=== PATIENT | male | born 2000 | race Caucasian/White ===

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

== ENCOUNTER 2021-01-13 12:08 | Inpatient (IN) ==
[2021-01-13] MEDS ORDERED: SODIUM CHLORIDE 0.9% 1000ML 2,000 ML IV ONE (13:06)
[2021-01-13 13:08] LABS: Basophils # (auto) 0.02 K/uL (0-0.2); Basophils % (auto) 0.3 %; Eosinophils # (auto) 0.39 K/uL (0-0.5); Hematocrit (blood only) 34.9 % (42-52); Hemoglobin 10.2 g/dL (14.0-18.0); Immature Granulocytes # (auto) 0.05 K/uL (0.00-0.02); Immature Granulocytes % (auto) 0.6 %; Lymphocytes # (auto) 1.92 K/uL (1.2-3.4); Lymphocytes % (auto) 24.5 %; Mean Corpuscular Hemoglobin 21.5 pg (25-34); Mean Corpuscular Hgb Conc 29.2 g/dL (32-36); Mean Corpuscular Volume 73.5 fL (80-100); Mean Platelet Volume 8.2 fL (7.4-10.4); Monocytes # (auto) 1.04 K/uL (0.11-0.59); Monocytes % (auto) 13.3 %; Neutrophils # (auto) 4.42 K/uL (1.4-6.5); Neutrophils % (auto) 56.3 %; Platelet Count 510 K/uL (130-400); RDW Coefficient of Variation 17.5 % (11.5-14.5); RDW Standard Deviation 47.2 fL (36.4-46.3); Red Blood Count 4.75 M/uL (4.7-6.1); White Blood Count 7.84 K/uL (4.8-10.8)
--- NOTE | 2021-01-13 13:23 | Emergency Department Note ---
Impression & Plan Inflammatory bowel disease, Abdominal pain ED Provider Note NAME: ROCKY DUFF AGE: 20 SEX: M : 2000 ARRIVES VIA: Walk-In INFORMANT: Patient ED PROVIDER(S): Seth Paniagua DO CHIEF COMPLAINT: Abdominal pain HPI: Patient is a 20-year-old male who presents to the ER for abdominal pain. He has a past medical history of ulcerative colitis and microcytic anemia. He follows with [facility]. He called them this morning and was referred in as he has had this persistent pain for the past several months. Its not getting any better. He notes his belly pain is about a 2 out of 10 in a wax and wane to severe pain with a loose bowel movement and then will gradually improve afterwards. He has had decreased blood in the stool. Recent C. difficile's te st within the past 48 hours was negative. ROS: See above HPI for pertinent positives & negatives. A total of 10 systems reviewed and were otherwise negative. PAST MEDICAL HISTORY:See Below PAST SURGICAL HISTORY:See Below FAMILY HISTORY:See Below SOCIAL HISTORY:See Below HOME MEDICATIONS:See Below ALLERGIES:See Below VITALS:See Below PHYSICAL EXAMINATION: GENERAL: Sitting up in bed, alert, well appearing, well nourished, no distress, non-toxic EYE EXAM: normal conjunctiva. OROPHARYNX: no exudate, no erythema, lips, buccal mucosa, and tongue normal and mucous membranes are moist NECK: supple, no nuchal rigidity, no adenopathy, non-tender LUNGS: Clear to auscultation. Normal chest wall mechanics HEART: no murmurs, S1 normal and S2 normal ABDOMEN: abdomen soft, non-tender, normo-active bowel sounds, no masses, no rebound or guarding. UPPER EXTREMITIES: upper extremities are grossly normal. LOWER EXTREMITIES: No pitting edema. NEURO EXAM: Normal sensorium, cranial nerves II-XII grossly intact, normal speech, no gross weakness of arms, no gross weakness of legs. MEDICAL DECISION MAKING: Patient is a 20-year-old male who presents the ER for Ulcerative colitis.IV was established blood work was obtained. Labs show no significant leukocytosis and mild anemia 10.2. BMP with mild hypokalemia. LFTs bilirubin and lipase is unremarkable. UA was negative. Covid was negative. CT abdomen pelvis did show proctocolitis likely consistent with inflammatory bowel disease. Discussed with gastroenterology who recommended admission and steroids. Triage Nursing notes reviewed. Limited review of prior medical records performed Vital Signs: reviewed and remarkable for tachy Differential diagnosis: Differential diagnoses includes but is not limited to gastritis, peptic ulcer disease, GERD, gallbladder disease, pancreatitis, small bowel obstruction, acute coronary syndrome, pericarditis, ischemic bowel, irritable bowel disease, irritable bowel syndrome, appendicitis, diverticulitis, malignancy, hernia, urinary tract infection, torsion, [/ectopic (if female)], perforation, trauma, infectious. ER treatment provided: See below Diagnostics interpreted by me: ECG: none Cardiac Monitoring: An order was placed for continuous cardiac monitoring. The monitor shows a rate of 88 with sinus rhythm. Laboratory studies: As stated above and show below. Imaging studies: CT abdomen pelvis as discussed above Consultation(s): Discussed with gastroenterology Marcellus who recommended admission to the hospitalist and steroids Discussed with Dr. Jason Dinero who was aware of the Pt. Procedures: none Critical Care: None Past Med/Surg History Medical History Abdominal pain Acute lower GI bleeding Encounter for health maintenance examination Otitis media Supraclavicular lymphadenopathy Ulcerative colitis Surgical History History of circumcision S/P colonoscopy [place] teeth extracted Family History Unknown Hypertension Cancer Father Hypercholesterolemia Denies family history of Ovarian cancer Prostate cancer Myocardial infarction Breast cancer Colorectal cancer Social History Smoking Status: Never smoker Hx Alcohol Use: No Hx Substance Use: No Preferred Language: Somali Communication Ability: Effective Electronic Calibration Technician Required: No Beliefs That Will Affect Care: None marital status: Single Current Living Situation: Family Current Living Situation Comment: parents and older brother current occupational status: student Feels Safe at Home: Yes Childhood Exposure to Second-Hand Smoke: No Dental Care, Regularly: Yes Physical Activity Frequency: 5-6 Times per Week Seatbelt Use: always Sunscreen Use: Yes Do you think of yourself as: straight/heterosexual Assistive Devices: None Allergies Allergies Allergy/AdvReac Type Severity Reaction Status Date / Time No Known Allergies Allergy Verified 01/12/21 19:08 Home Meds Home Medications Medication Instructions Recorded Confirmed colestipol 1 g PO BID 01/13/21 01/13/21 ferrous sulfate 1 mg PO DAILY 01/13/21 01/13/21 multivitamin 1 tab PO DAILY 01/13/21 01/13/21 peppermint oil [IBgard] 90 mg PO BID 01/13/21 01/13/21 prednisone 20 mg PO DAILY 01/13/21 01/13/21 vedolizumab [Entyvio] 300 mg IV MONTHLY 01/13/21 01/13/21 Previous Rx's Medication Instructions Recorded dicyclomine 20 mg PO BID #20 cap 11/12/20 Results & Data (ED) Vital Signs Vital Signs - 24 hr 01/13/21 12:13 01/13/21 15:44 01/13/21 16:36 Temperature 36.9 C Temperature Source Temporal Artery Scan Pulse Rate 109 H 78 Pulse Rate [Right Finger] 82 Pulse Rate from SpO2 Sensor Pulse Rhythm Regular Respiratory Rate 18 18 20 Respiratory Effort / Characteristics Non-Labored Spontaneous Non-Labored Respiratory Depth Normal Normal Respiratory Pattern Regular Regular Blood Pressure 106/60 Blood Pressure [Right Arm] 110/54 L Blood Pressure Mean 75 Blood Pressure Mean [Right Arm] 72 Pulse Oximetry 98 97 99 Oxygen Delivery Method Room Air Room Air Room Air Sepsis Recent Fever Within 48 Hours No Sepsis New/Unexplained Change in Mental Status No Sepsis Action Taken by Nursing No Action Required 01/13/21 16:47 01/13/21 17:00 Temperature Temperature Source Pulse Rate 135 H 89 Pulse Rate [Right Finger] Pulse Rate from SpO2 Sensor 79 87 Pulse Rhythm Respiratory Rate 15 18 Respiratory Effort / Characteristics Respiratory Depth Respiratory Pattern Blood Pressure 122/54 L Blood Pressure [Right Arm] Blood Pressure Mean 76 Blood Pressure Mean [Right Arm] Pulse Oximetry 98 98 Oxygen Delivery Method Sepsis Recent Fever Within 48 Hours Sepsis New/Unexplained Change in Mental Status Sepsis Action Taken by Nursing Laboratory Data Result diagrams: 01/13/21 12:50 01/13/21 12:50 Lab Results 01/13/21 01/13/21 01/13/21 Range/Units 12:50 12:50 15:51 WBC 7.84 (4.8-10.8) K/uL RBC 4.75 (4.7-6.1) M/uL Hgb 10.2 L (14.0-18.0) g/dL Hct 34.9 L (42-52) % MCV 73.5 L (80-100) fL MCH 21.5 L (25-34) pg MCHC 29.2 L (32-36) g/dL RDW Std Deviation 47.2 H (36.4-46.3) fL RDW Coeff of Emily 17.5 H (11.5-14.5) % Plt Count 510 H (130-400) K/uL MPV 8.2 (7.4-10.4) fL Immature Gran % (Auto) 0.6 % Neut % (Auto) 56.3 % Lymph % (Auto) 24.5 % Sanders % (Auto) 13.3 % Eos % (Auto) 5.0 % Baso % (Auto) 0.3 % Neut # (Auto) 4.42 (1.4-6.5) K/uL Lymph # (Auto) 1.92 (1.2-3.4) K/uL Sanders # (Auto) 1.04 H (0.11-0.59) K/uL Eos # (Auto) 0.39 (0-0.5) K/uL Baso # (Auto) 0.02 (0-0.2) K/uL Immature Gran # (Auto) 0.05 H (0.00-0.02) K/uL Polychromasia 1+ Anisocytosis Present Ovalocytes 1+ Sodium 137 (136-145) mmol/L Potassium 3.4 L (3.5-5.1) mmol/L Chloride 103 (98-107) mmol/L Carbon Dioxide 27 (21-32) mmol/L Anion Gap 7.0 (3-11) BUN 9 (7-18) mg/dl Creatinine 0.85 (0.6-1.4) mg/dl Est Cr Clr Drug Dosing 137.4 ml/min Est GFR ( Amer) 146.4 ml/min Est GFR (Non-Af Amer) 126.3 ml/min BUN/Creatinine Ratio 10.2 (10-20) Glucose 73 (70-99) mg/dl Calcium 8.8 (8.5-10.1) mg/dl Total Bilirubin 1.0 (0.2-1) mg/dl AST < 3 L (15-37) U/L ALT 16 (12-78) U/L Alkaline Phosphatase 54 (45-117) U/L Total Protein 6.8 (6.4-8.2) gm/dl Albumin 2.8 L (3.4-5.0) gm/dl Globulin 4.0 (2.5-4.0) gm/dl Albumin/Globulin Ratio 0.7 L (0.9-2) Lipase 87 (73-393) U/L Urine Color Yellow Urine Appearance Turbid A (Clear) Urine pH 7.0 (4.5-7.5) Ur Specific [place] 1.020 (1.000-1.030) Urine Protein Negative (Negative) Urine Glucose (UA) Negative (Negative) Urine Ketones Trace H (Negative) Urine Blood Negative (Negative) Urine Nitrite Negative (Negative) Urine Bilirubin Negative (Negative) Urine Urobilinogen Negative (Negative) Ur Leukocyte Esterase Negative (Negative) Urine WBC (Auto) 1-5 (0-5) /hpf Urine RBC (Auto) 0-4 (0-4) /hpf U Hyaline Cast (Auto) 5-10 H (0-5) /lpf U Epithel Cells (Auto) 5-10 H (0-5) /lpf Urine Bacteria (Auto) Negative (Negative) COVID-19 Eval Order SARS-CoV-2 (PCR) (Negative) 01/13/21 01/13/21 Range/Units 15:51 15:51 WBC (4.8-10.8) K/uL RBC (4.7-6.1) M/uL Hgb (14.0-18.0) g/dL Hct (42-52) % MCV (80-100) fL MCH (25-34) pg MCHC (32-36) g/dL RDW Std Deviation (36.4-46.3) fL RDW Coeff of Emily (11.5-14.5) % Plt Count (130-400) K/uL MPV (7.4-10.4) fL Immature Gran % (Auto) % Neut % (Auto) % Lymph % (Auto) % Sanders % (Auto) % Eos % (Auto) % Baso % (Auto) % Neut # (Auto) (1.4-6.5) K/uL Lymph # (Auto) (1.2-3.4) K/uL Sanders # (Auto) (0.11-0.59) K/uL Eos # (Auto) (0-0.5) K/uL Baso # (Auto) (0-0.2) K/uL Immature Gran # (Auto) (0.00-0.02) K/uL Polychromasia Anisocytosis Ovalocytes Sodium (136-145) mmol/L Potassium (3.5-5.1) mmol/L Chloride (98-107) mmol/L Carbon Dioxide (21-32) mmol/L Anion Gap (3-11) BUN (7-18) mg/dl Creatinine (0.6-1.4) mg/dl Est Cr Clr Drug Dosing ml/min Est GFR ( Amer) ml/min Est GFR (Non-Af Amer) ml/min BUN/Creatinine Ratio (10-20) Glucose (70-99) mg/dl Calcium (8.5-10.1) mg/dl Total Bilirubin (0.2-1) mg/dl AST (15-37) U/L ALT (12-78) U/L Alkaline Phosphatase (45-117) U/L Total Protein (6.4-8.2) gm/dl Albumin (3.4-5.0) gm/dl Globulin (2.5-4.0) gm/dl Albumin/Globulin Ratio (0.9-2) Lipase (73-393) U/L Urine Color Urine Appearance (Clear) Urine pH (4.5-7.5) Ur Specific [place] (1.000-1.030) Urine Protein (Negative) Urine Glucose (UA) (Negative) Urine Ketones (Negative) Urine Blood (Negative) Urine Nitrite (Negative) Urine Bilirubin (Negative) Urine Urobilinogen (Negative) Ur Leukocyte Esterase (Negative) Urine WBC (Auto) (0-5) /hpf Urine RBC (Auto) (0-4) /hpf U Hyaline Cast (Auto) (0-5) /lpf U Epithel Cells (Auto) (0-5) /lpf Urine Bacteria (Auto) (Negative) COVID-19 Eval Order Covid19 at [facility] SARS-CoV-2 (PCR) NEGATIVE (Negative) Administered Medications Discontinued Medications Sodium Chloride (Nss 1000ml) 2,000 mls @ 999 mls/hr IV .Q2H1M ONE Stop: 01/13/21 15:06 Last Infusion: 01/13/21 15:36 Dose: 0 mls/hr Documented by: [id number] Admin: 01/13/21 13:13 Dose: 999 mls/hr Documented by: [id number] Ioversol (Optiray 320 100ml) 90 ml IV ONCE ONE Stop: 01/13/21 14:59 Last Admin: 01/13/21 14:58 Dose: 90 ml Documented by: [id number] Methylprednisolone (Methylprednisolone 40 Mg/Ml Vial) 20 mg IV NOW STA Stop: 01/13/21 15:17 Last Admin: 01/13/21 15:41 Dose: 20 mg Documented by: [id number] Imaging Data Radiologist's Impression: Abdomen/Pelvis CT 01/13/21 13:06 CT OF THE ABDOMEN AND PELVIS WITH CONTRAST CLINICAL HISTORY: Abdominal pain. Ulcerative colitis. COMPARISON STUDY: CT of the abdomen and pelvis October 31, 2020. TECHNIQUE: Following IV administration of 90 mL of Optiray, axial images of the abdomen and pelvis were obtained from the lung bases to the proximal femurs. Images were reviewed in the axial, sagittal, and coronal planes. IV contrast was administered without complication. Automated exposure control was utilized for the study. A dose lowering technique was utilized adhering to the principles of ALARA. CT DOSE: 364.78 mGycm FINDINGS: Lung bases are unremarkable. No pneumatosis, free air or portal venous gas is present. Subcentimeter right hepatic lobe lesion is too small to c haracterize but likely reflect a tiny cyst. The spleen, adrenal glands and kidneys as well as the pancreas are normal. There is no biliary or pancreatic ductal dilatation. No peripancreatic or pericholecystic infiltration is present. There is no hydronephrosis. The appendix is normal. There is no evidence for a bowel obstruction. Moderate wall thickening of the rectum, sigmoid colon and descending colon present. There is mild wall thickening of the transverse colon and the ascending colon. There is evidence for hyperemia. The findings have progressed since CT of October 31, 2020. No abscess is present. Major vasculature is patent. No acute fracture or suspicious lesion is identified within visu alized skeletal structures. IMPRESSION: Findings consistent with proctocolitis with long segment involvement. Increase in degree and extent of colonic wall thickening since CT of October 31, 2020. The findings suggest active inflammatory bowel disease given the clinical history. No free air or abscess. ACT 112: Negative or not required by law. Electronically signed by: Dov Cowart M.D. 01/13/2021 3:22 PM Discharge Plan Visit Data Chief Complaint: GI Assessment Stated Complaint: FLARE UP ULCERATIVE COLITIS/DR REFERRED TO BE ADMI ED Provider: Seth Paniagua Discharge Problem: Inflammatory bowel disease, Abdominal pain Forms Stand Alone Forms: [facility] [employer] Prescriptions Prescriptions: No Action dicyclomine 10 mg Capsule 20 mg PO BID Qty: 20 RF: 0 multivitamin Tablet 1 tab PO DAILY RF: 0 prednisone 10 mg Tablets,Dose Pack 20 mg PO DAILY RF: 0 colestipol 1 gram Tablet 1 g PO BID RF: 0 ferrous sulfate 325 mg (65 mg iron) Capsule, Extended Release 1 mg PO DAILY RF: 0 Entyvio 300 mg Recon Soln 300 mg IV MONTHLY RF: 0 IBgard 90 mg Capsule,Delayed,Extend.Release 90 mg PO BID RF: 0 Discharge Problem: Abdominal pain Qualifiers: Abdominal location: unspecified location Qualified Code(s): R10.9 - Unspecified abdominal pain
[2021-01-13 13:32] LABS: Alanine Aminotransferase 16 U/L (12-78); Albumin Level 2.8 gm/dl (3.4-5.0); Aspartate Aminotransferase < 3 U/L (15-37); BUN Creatinine Ratio 10.2 (10-20); Blood Urea Nitrogen 9 mg/dl (7-18); Calcium 8.8 mg/dl (8.5-10.1); Carbon Dioxide 27 mmol/L (21-32); Chloride 103 mmol/L (98-107); Creatinine Clr Calc Pharmacy 137.4 ml/min; Est GFR (African American) 146.4 ml/min; Est GFR (Non-African American) 126.3 ml/min; Glucose 73 mg/dl (70-99); Lipase 87 U/L (73-393); Potassium 3.4 mmol/L (3.5-5.1); Sodium 137 mmol/L (136-145)
[2021-01-13 13:34] LABS: Albumin Globulin Ratio 0.7 (0.9-2); Alkaline Phosphatase 54 U/L (45-117); Total Protein 6.8 gm/dl (6.4-8.2)
[2021-01-13 13:51] LABS: Anisocytosis Present; Ovalocytes 1+; Polychromasia 1+
[2021-01-13] MEDS ORDERED: OPTIRAY 320 100ml IV ONE (14:58)
--- NOTE | 2021-01-13 15:23 | CT Scan Report ---
CT OF THE ABDOMEN AND PELVIS WITH CONTRAST CLINICAL HISTORY: Abdominal pain. Ulcerative colitis. COMPARISON STUDY: CT of the abdomen and pelvis October 31, 2020. TECHNIQUE: Following IV administration of 90 mL of Optiray, axial images of the abdomen and pelvis we re obtained from the lung bases to the proximal femurs. Images were reviewed in the axial, sagittal, and coronal planes. IV contrast was administered without complication. Automated exposure control wa s utilized for the study. A dose lowering technique was utilized adhering to the principles of ALARA . CT DOSE: 364.78 mGycm FINDINGS: Lung bases are unremarkable. No pneumatosis, free air or portal venous gas is present. Subc entimeter right hepatic lobe lesion is too small to characterize but likely reflect a tiny cyst. The spleen, adrenal glands and kidneys as well as the pancreas are normal. There is no biliary or pancrea tic ductal dilatation. No peripancreatic or pericholecystic infiltration is present. There is no hydr onephrosis. The appendix is normal. There is no evidence for a bowel obstruction. Moderate wall thick ening of the rectum, sigmoid colon and descending colon present. There is mild wall thickening of the transverse colon and the ascending colon. There is evidence for hyperemia. The findings have progres sed since CT of October 31, 2020. No abscess is present. Major vasculature is patent. No acute fracture or suspicious lesion is identified within visualized skeletal structures. IMPRESSION: Findings consistent with proctocolitis with long segment involvement. Increase in degree and extent of colonic wall thickening since CT of October 31, 2020. The findings suggest active inflamm atory bowel disease given the clinical history. No free air or abscess. ACT 112: Negative or not required by law. Electronically signed by: Dov Cowart M.D. 01/13/2021 3:22 PM
[2021-01-13 16:44] LABS: Appearance Urine Turbid (Clear); Bacteria Urine Automated Negative (Negative); Bilirubin Urine Negative (Negative); Blood Urine Negative (Negative); Color Urine Yellow; Glucose Urine UA Negative (Negative); Ketones Urine Trace (Negative); Leukocyte Esterase Urine Negative (Negative); Nitrite Urine Negative (Negative); Protein Urine Negative (Negative); RBC Urine Automated 0-4 /hpf (0-4); Urobilinogen Urine Negative (Negative)
--- NOTE | 2021-01-13 17:34 | History & Physical Report ---
Date of Service January 13, 2021 Assessment & Plan (1) Ulcerative colitis: Patient with presumed UC flair- with diagnosis in 2019 on colonoscopy - he has noticed no change in his symptoms with with Entyvio, dicyclomine, colestipol - Will be started on Methylprednisolone 40 BID IV - GI consult placed - NPO after midnight (2) Abdominal pain: As above, pain with defecation for the most part (3) Microcytic anemia: Is on iron sulfate- was placed on this after his October admisson - His MCV is up to 73.5 from 69 in the past (4) Weight loss: Symptom control History of Present Illness Primary Care Provider: Sushil Davis III, KANDICE Paul Clifton is a 20 year old male with ulcerative colitis who presents to the ER on advice of his surveying teacher. Patient has persistent symptoms of ongoing bloody diarrhea for the past 2-3 weeks despite outpatient prednisone treatment. Multiple non-response to treatment for ulcerative colitis for last 1.5 years. Was recently admitted in September for continued symptoms and was treated with IV methylprednisolone 60mg QID. He has been on a Prednisone taper, he reports 25 pound weight loss as well as unable to continue at College classes because of severe diarrhea. His episodes have also been waking him up in the middle of the night as well. He endorses increase in blood with diarrhea and more frequency. He has chills with his diarrhea, and abdominal discomfort is majority in the bilateral lower quadrants. He will be admitted to receive IV steroids, NPO after midnight, GI consult placed. Allergies Allergy/AdvReac Type Severity Reaction Status Date / Time No Known Allergies Allergy Verified 01/12/21 19:08 Home Medications Medication Instructions Recorded Confirmed Type dicyclomine 20 mg PO BID #20 cap 11/12/20 01/13/21 Rx Entyvio 300 mg IV MONTHLY 01/13/21 01/13/21 History colestipol 1 g PO BID 01/13/21 01/13/21 History ferrous sulfate 1 mg PO DAILY 01/13/21 01/13/21 History multivitamin 1 tab PO DAILY 01/13/21 01/13/21 History mesalamine 4 g MN BID 14 Days #1680 ml 01/16/21 Rx prednisone See Rx Instructions .ROUTE 01/16/21 Rx .COMPLEX #35 tab Past Med/Surg History Medical History Abdominal pain Acute lower GI bleeding Encounter for health maintenance examination Otitis media Supraclavicular lymphadenopathy Ulcerative colitis Surgical History History of circumcision S/P colonoscopy Fall 2018. 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 Cheesemaking Required: No Beliefs That Will Affect Care: None marital status: Single Current Living Situation: Family Current Living Situation Comment: parents and older brother current occupational status: student Feels Safe at Home: Yes Childhood Exposure to Second-Hand Smoke: No Dental Care, Regularly: Yes Physical Activity Frequency: 5-6 Times per Week Seatbelt Use: always Sunscreen Use: Yes Do you think of yourself as: straight/heterosexual Assistive Devices: None Review of Systems Review of Systems: REVIEW OF SYSTEMS: Constitutional: (+) weight loss and fatiuge, No fever, sweats Eyes: No diplopia, no worsening or blurred vision ENT: normal hearing, no trouble swallowing Respiratory: No cough, sputum, dyspnea at rest or on exertion Cardiovascular: No chest pain, tightness or palpitations Abdomen: (+) pain, diarrhea, bloody diarrhea, chills, Musculoskeletal: No joint pain, calf pain, swelling Neurologic: No weakness, numbness/tingling, or balance problems Psychiatric: No anxiety or depression Skin: No rash or itch Physical Exam Physical Exam: PHYSICAL EXAM: General: awake, alert, no apparent distress Head: Normocephalic, atraumatic ENT: PERRL, EOMI, no pharyngeal exudate, mucous membranes moist, no oral ulcerations Neuro: AAO x 3, speech clear and appropriate, strength intact bilaterally 5/5, sensation intact and equal all extremities and dermatomes, no pronator drift Chest: equal rise and fall of the chest, no accessory muscle use, no heaves or thrills, Clear to auscultation, on room air, Cardiac: Regular rate and rhythm, telemetry reviewed, skin warm dry, cap refill <3 seconds, peripheral pulses +2 no JVD, no murmur, no edema GI: NABS x 4 quadrants, soft, nontender to palpation, no rebound, guarding or tenderness : Spontaneously voiding, no pain, no CVA tenderness, Extremities: Normal inspection, no peripheral edema or erythema, calfs nontender to palpation Psych: Normal mood and affect Skin: no rash or erythema Results & Data Results & Data ([facility]) Vital Signs (Past 12 Hours) Vital Signs Temp Pulse Pulse Resp BP BP Pulse Ox 01/13/21 17:00 89 18 122/54 L 98 01/13/21 16:47 135 H 15 98 01/13/21 16:36 78 20 99 01/13/21 15:44 82 18 110/54 L 97 01/13/21 12:13 36.9 C 109 H 18 106/60 98 Laboratory Results Abnormal lab results 01/13/21 01/13/21 01/13/21 Range/Units 12:50 12:50 15:51 Hgb 10.2 L (14.0-18.0) g/dL Hct 34.9 L (42-52) % MCV 73.5 L (80-100) fL MCH 21.5 L (25-34) pg MCHC 29.2 L (32-36) g/dL RDW Std Deviation 47.2 H (36.4-46.3) fL RDW Coeff of Emily 17.5 H (11.5-14.5) % Plt Count 510 H (130-400) K/uL [place] # (Auto) 1.04 H (0.11-0.59) K/uL Immature Gran # (Auto) 0.05 H (0.00-0.02) K/uL Potassium 3.4 L (3.5-5.1) mmol/L AST < 3 L (15-37) U/L Albumin 2.8 L (3.4-5.0) gm/dl Albumin/Globulin Ratio 0.7 L (0.9-2) Urine Appearance Turbid A (Clear) Urine Ketones Trace H (Negative) U Hyaline Cast (Auto) 5-10 H (0-5) /lpf U Epithel Cells (Auto) 5-10 H (0-5) /lpf Diagnostic Findings Abdomen/Pelvis CT 01/13/21 13:06 CT OF THE ABDOMEN AND PELVIS WITH CONTRAST CLINICAL HISTORY: Abdominal pain. Ulcerative colitis. COMPARISON STUDY: CT of the abdomen and pelvis October 31, 2020. TECHNIQUE: Following IV administration of 90 mL of Optiray, axial images of the abdomen and pelvis were obtained from the lung bases to the proximal femurs. Images were reviewed in the axial, sagittal, and coronal planes. IV contrast was administered without complication. Automated exposure control was utilized for the study. A dose lowering technique was utilized adhering to the principles of ALARA. CT DOSE: 364.78 mGycm FINDINGS: Lung bases are unremarkable. No pneumatosis, free air or portal venous gas is present. Subcentimeter right hepatic lobe lesion is too small to characterize but likely reflect a tiny cyst. The spleen, adrenal glands and kidneys as well as the pancreas are normal. There is no biliary or pancreatic ductal dilatation. No peripancreatic or pericholecystic infiltration is present. There is no hydronephrosis. The appendix is normal. There is no evidence for a bowel obstruction. Moderate wall thickening of the rectum, sigmoid colon and descending colon present. There is mild wall thickening of the transverse colon and the ascending colon. There is evidence for hyperemia. The findings have progressed since CT of October 31, 2020. No abscess is present. Major vasculature is patent. No acute fracture or suspicious lesion is identified within visualized skeletal structures. IMPRESSION: Findings consistent with proctocolitis with long segment involvement. Increase in degree and extent of colonic wall thickening since CT of October 31, 2020. The findings suggest active inflammatory bowel disease given the clinical history. No free air or abscess. ACT 112: Negative or not required by law. Electronically signed by: Dov Cowart M.D. 01/13/2021 3:22 PM Medications Administered Discontinued Medications Sodium Chloride (Nss 1000ml) 2,000 mls @ 999 mls/hr IV .Q2H1M ONE Stop: 01/13/21 15:06 Last Infusion: 01/13/21 15:36 Dose: 0 mls/hr Documented by: [id number] Admin: 01/13/21 13:13 Dose: 999 mls/hr Documented by: [id number] Ioversol (Optiray 320 100ml) 90 ml IV ONCE ONE Stop: 01/13/21 14:59 Last Admin: 01/13/21 14:58 Dose: 90 ml Documented by: [id number] Methylprednisolone (Methylprednisolone 40 Mg/Ml Vial) 20 mg IV NOW STA Stop: 01/13/21 15:17 Last Admin: 01/13/21 15:41 Dose: 20 mg Documented by: [id number] Code Status & VTE Plan Code Status CODE: FULL VTE: SCD's, ambulation VTE Prophylaxis Plan VTE Prophylaxis will be ordered: Yes Supervising Physician Co-Signing Physician Notes Attending Attestation - Pt seen and examined, chart reviewed, care plan d/w KANDICE Hernandez. I agree w/ the parker components of his documentation. 20yo male with treatment-refractory Ulcerative colitis. Despite prednisone & biologics (Entyvio) he has continued with bloody stools and significant weight loss. PMH, PSH, allergies, meds, sochx, famhx - reviewed VSS, afebrile gen - thin, NAD skin - pallor heart - RRR, s1, s2 lungs - CTA b/l abd - soft NT ND BS+; no HSM ext - no edema labs - reviewed microcytic anemia recent c diff testing neg CT abd/pelvis - reviewed A/P: Treatment-refractory UC. Severe protein calorie malnutrition. Microcyctic anemia Formal GI consult requested for additional recs. IN meantime - solumedrol IV. Check ferritin, consider IV iron. Consider nutrition consult. Trend labs. Dominic Dinero MD PG Care Time/CCT Total # of Minutes Spent Total Time Spent with Patient: Total time spent is greater than 50% in coordination of care (as documented) at patient's floor/unit and/or counseling patient: Coding Level of Care Code 11682 Initial Inpt Care Lvl 2 Diagnoses Ulcerative colitis K51.819 Digestive disease complication type: unspecified complication Ulcerative colitis location: other ulcerative colitis Abdominal pain R10.9 Abdominal location: unspecified location Microcytic anemia D50.9 Weight loss R63.4 (1) Abdominal pain Abdominal location: unspecified location Qualified Code(s): R10.9 - Unspecified abdominal pain (2) Ulcerative colitis Digestive disease complication type: unspecified complication Ulcerative colitis location: other ulcerative colitis Qualified Code(s): K51.819 - Other ulcerative colitis with unspecified complications
[2021-01-13] MEDS ORDERED: methylPREDNISolone 125 MG/2 ML VIAL IV STA (19:29)
[2021-01-13] MEDS ORDERED: methylPREDNISolone 20 MG in SYRINGE 0 ML IV SCH (20:00)
[2021-01-13] MEDS: DICYCLOMINE HCL 10 MG CAP PO SCH (20:35)
[2021-01-13] MEDS ORDERED: NON-FORMULARY MEDICATION (Peppermint Oil [Ibgard] 90 mg Capsule,Delayed,Extend.Release) PO SCH (21:00)
[2021-01-13] MEDS: COLESTIPOL HCL 1 GM TAB PO SCH (22:09)
[2021-01-14 00:38] LABS: Cdiff Antigen Negative; Cdiff Toxin A+B Negative Cdiff Toxin (Negative)
[2021-01-14 07:41] LABS: Basophils # (auto) 0.01 K/uL (0-0.2); Basophils % (auto) 0.1 %; Eosinophils # (auto) 0.02 K/uL (0-0.5); Eosinophils % (auto) 0.2 %; Hematocrit (blood only) 31.8 % (42-52); Hemoglobin 9.3 g/dL (14.0-18.0); Immature Granulocytes # (auto) 0.05 K/uL (0.00-0.02); Immature Granulocytes % (auto) 0.5 %; Lymphocytes # (auto) 1.72 K/uL (1.2-3.4); Lymphocytes % (auto) 15.9 %; Mean Corpuscular Hemoglobin 21.4 pg (25-34); Mean Corpuscular Hgb Conc 29.2 g/dL (32-36); Mean Corpuscular Volume 73.3 fL (80-100); Mean Platelet Volume 8.1 fL (7.4-10.4); Monocytes # (auto) 1.48 K/uL (0.11-0.59); Monocytes % (auto) 13.7 %; Neutrophils # (auto) 7.55 K/uL (1.4-6.5); Neutrophils % (auto) 69.6 %; Platelet Count 521 K/uL (130-400); RDW Coefficient of Variation 17.4 % (11.5-14.5); RDW Standard Deviation 47.1 fL (36.4-46.3); Red Blood Count 4.34 M/uL (4.7-6.1); White Blood Count 10.83 K/uL (4.8-10.8)
[2021-01-14] MEDS: MULTIVITAMIN TAB PO SCH (08:04)
[2021-01-14] MEDS: methylPREDNISolone 40 MG in SYRINGE 0 ML IV SCH ×2 (08:04→20:35)
[2021-01-14] MEDS: DICYCLOMINE HCL 10 MG CAP PO SCH ×2 (08:04→21:16)
[2021-01-14 08:09] LABS: Anisocytosis Present; Blood Urea Nitrogen 5 mg/dl (7-18); Calcium 9.1 mg/dl (8.5-10.1); Carbon Dioxide 29 mmol/L (21-32); Chloride 107 mmol/L (98-107); Creatinine Clr Calc Pharmacy 182.2 ml/min; Est GFR (African American) > 150.0 ml/min; Est GFR (Non-African American) 141.9 ml/min; Ferritin 7.8 ng/ml (8-388); Glucose 109 mg/dl (70-99); Magnesium 2.1 mg/dl (1.8-2.4); Ovalocytes 1+; Polychromasia 1+; Potassium 4.2 mmol/L (3.5-5.1); Sodium 139 mmol/L (136-145)
--- NOTE | 2021-01-14 08:46 | Gastrointestinal Consultation ---
Date of Consultation January 14, 2021 Assessment & Plan (1) Ulcerative colitis: Agree with IV Solu-Medrol - currently receiving 40 mg every 12 hours. Clear liquid diet. Add mesalamine enemas twice daily x2 weeks then daily at bedtime for about 2 weeks, then twice weekly for a month. Would likely benefit from IV iron infusions. Has been on po iron since October, w/o significant improvement in Hb. He is iron deficient: ferritin 7.8. After further improvement, at the time of discharge, would discharge on prednisone 40 mg daily. For OP management of UC, mesalamine enemas as above, Continue Entyvio. For diarrhea, would add Imodium on an as-needed basis, as long as no active C. difficile or other infection. Would continue colestipol and dicyclomine. He needs to be in close contact with Sakshi Vo NP and/or Dr. Delacruz for appropriate taper of the prednisone. He may need to have a very slow prednisone taper. Present on Admission?: Yes Supervising Physician Co-Signing Physician Notes I saw and evaluated the patient. He was admitted yesterday evening due to refractory symptoms from underlying inflammatory bowel disease. The patient has been on Entyvio as an outpatient for the past 6 weeks but continues to have problems with loose to liquid stools. He believes that his last hematochezia was several weeks ago. He does continue to have problems with urgency or cramping and frequency. Physical examination No obvious distress, mild pallor of skin noted No scleral icterus noted Impression patient admitted with a history of refractory ulcerative colitis now seems to be improving with use of Solu-Medrol. We would continue use of intravenous steroids for at least another 24 to 48 hours. In addition we will have the patient begin use of Canasa suppository. I did discuss the Rowasa enema with him however he believes that he has had better response to the suppository in past history. Recommendations Advance diet as tolerated Continue Solu-Medrol for another 48 hours Begin Canasa suppository twice daily for 2 weeks then 1 time daily for 2 weeks then 3 times weekly thereafter Upon discharge would recommend a prednisone taper 20 mg daily for 4 weeks 15 mg daily for 1 week 10 mg daily for 1 week 5 mg daily for 1 week History of Present Illness Reason for Consultation: UC flare Requesting Physician: Suita Attending Physician: Tr Gutierrez MD History of Present Illness Mr. Paul Clifton is a 20-year-old male pt of Sushil Davis NP with a hx of hatch UC dx'ed at age 19, previously on balsalazide, Lialda,Humira and recently received the initial 2 infusions of Entyvio, with his next being due in mid January. He carries a hx of C-diff and has had ongoing UC symptoms since diagnosis. Recently was on prednisone 20mg daily as an OP. 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 Recent stool for C-diff and GI path were (-) in the OP setting. Here, C-diff gene is (+) but toxins (-). He does not some improvement in symptoms since Entyvio was started, less blood in BMs, slightly less frequent BMs. Currently, still with nighttime wakening for defecation and typically 6-10 loose urgent bowel movements per day during every 24 hour. About 75% of the stools have a small amount of bright red blood. No nausea or vomiting. He denies any problematic symptoms from prednisone use. He has been managed by Sakshi Vo and is also following with Dr. Delacruz in [place]. CT on arrival with moderate wall thickening of the rectum, sigmoid colon and descending colon present, with increased severity compared to CT in October which suggested mild left-sided colitis.WBC is mildly elevated at 10.8 and he is mildly anemic with Hb 9.3, Hct 31.8. Electrolytes are normal and he is hemodynamically stable. Most recent Colonoscopy Jun 2020: Pancolitis consistent with UC from the rectum to the cecum. TI normal. A. Right colon: Colonic mucosa with no significant architecture distortion or active inflammation B. Transverse colon: Colonic mucosa with occasional 1 or 2 cryptitis or crypt abscess. C. Left colon: Chronic colitis, severely active, associated ulcer. CMV is negative. Allergies Allergy/AdvReac Type Severity Reaction Status Date / Time No Known Allergies Allergy Verified 01/12/21 19:08 Home Medications Medication Instructions Recorded Confirmed Type dicyclomine 20 mg PO BID #20 cap 11/12/20 01/13/21 Rx colestipol 1 g PO BID 01/13/21 01/13/21 History ferrous sulfate 1 mg PO DAILY 01/13/21 01/13/21 History multivitamin 1 tab PO DAILY 01/13/21 01/13/21 History peppermint oil [IBgard] 90 mg PO BID 01/13/21 01/13/21 History prednisone 20 mg PO DAILY 01/13/21 01/13/21 History vedolizumab [Entyvio] 300 mg IV MONTHLY 01/13/21 01/13/21 History Patient History Medical History Abdominal pain Acute lower GI bleeding Encounter for health maintenance examination Otitis media Supraclavicular lymphadenopathy Ulcerative colitis Surgical History History of circumcision S/P colonoscopy Fall 2018. [place] teeth extracted Family History Unknown Hypertension Cancer Father Hypercholesterolemia Denies family history of Ovarian cancer Prostate cancer Myocardial infarction Breast cancer Colorectal cancer Social History Smoking Status: Never smoker Hx Alcohol Use: No Hx Substance Use: No Preferred Language: Niuean Communication Ability: Effective Personnel Administrator Required: No Beliefs That Will Affect Care: None marital status: Single Current Living Situation: Family Current Living Situation Comment: parents and older brother current occupational status: student Feels Safe at Home: Yes Safety Concerns: Feels Safe At This Time Childhood Exposure to Second-Hand Smoke: No Dental Care, Regularly: Yes Physical Activity Frequency: 5-6 Times per Week Seatbelt Use: always Sunscreen Use: Yes Do you think of yourself as: straight/heterosexual Assistive Devices: None Review of Systems Review of Systems: ROS: Gen: Poor exercise tolerance but otherwised no weakness; no fevers; has had a 30lbs weight loss Eyes: No eye redness, or pain, no recent vision changes Resp: No SOB, no cough Cardio: No palpitations/irregular beats, no chest pain GI: 7 of 10 abdominal cramping pain prior to defecation; no abdominal pain between stooling; no nausea/vomiting : Denies pain on urination Skin: No jaundice, itching or new rashes Physical Exam Constitutional: WD/WN, vitals as above Eyes: PERRL, conjunctivae normal, anicteric sclerae ENMT: external ear and nose normal, oropharynx normal Neck: trachea midline, no thyromegaly Respiratory: normal respiratory effort, lungs clear to auscultation Cardiovascular: RRR, no murmur, no edema Gastrointestinal (Abdomen): Inspection/Auscultation: abdomen normal to inspection and normal bowel sounds; abdomen not distended Percussion/Palpation: + abdomen tender (minimal diffuse tenderness) and abdomen soft Musculoskeletal: no cyanosis or clubbing, extremities motor strength 5/5 Skin: no rashes, warm and dry Neurologic: PERRL, EOMI, accommodation nl, no face palsy, no dysarthria Psychiatric: A+Ox3, euthymic affect Lymphatic: no cervical or axillary lymphadenopathy Results & Data ([facility]) Vital Signs (Past 12 Hours) Vital Signs Temp Pulse Resp BP Pulse Ox 01/14/21 08:05 36.8 C 69 12 100/58 L 98 01/13/21 23:04 36.9 C 67 18 101/63 99 Laboratory Results WBC 10.8, Hb 9.3, Hct 31, Plts 521, Na 139, K 4.2, BUN 5, Cr .64, glucose 101. Ferritin 7.8Albumin 2.8. LFTs and lipase normal. Diagnostic Findings CT abd/pelvis with IV contrast on 01/13/21: IMPRESSION: Findings consistent with proctocolitis with long segment involvement. Increase in degree and extent of colonic wall thickening since CT of October 31, 2020. The findings suggest active inflammatory bowel disease given the clinical history. No free air or abscess.
[2021-01-14] MEDS ORDERED: FERROUS SULFATE 325 MG TAB PO SCH (09:00)
--- NOTE | 2021-01-14 09:08 | Hospitalist Progress Note ---
Date of Service January 14, 2021 Assessment & Plan (1) Ulcerative colitis: Patient with presumed UC flair- with diagnosis in 2019 on colonoscopy - he has noticed no change in his symptoms with with Entyvio, dicyclomine, colestipol - Will be started on Methylprednisolone 40 BID IV - GI consult placed no plans and intervention continuing steroid treatment however is recommending mesalamine enemas twice daily for 2 weeks then once daily for 2 weeks then twice weekly for a month also recommending iron infusion Patient is having rectal bleeding CT abd/pelvis 01/13/21 IMPRESSION: Findings consistent with proctocolitis with long segment involvement. Increase in degree and extent of colonic wall thickening since CT of October 31, 2020. The findings suggest active inflammatory bowel disease given the clinical history. No free air or abscess. (2) Abdominal pain: As above, pain with defecation for the most part (3) Microcytic anemia: Is on iron sulfate- was placed on this after his October admisson - His MCV is up to 73.5 from 69 in the past (4) Weight loss: Symptom control Patient is underweight Admission and Anticipated Discharge Date Admission Date: January 13, 2021 Subjective Patient is having some rectal pain he does still some mild rectal bleeding he is got some crampy abdominal discomfort Review of Systems Review of Systems: Mild distress and fatigue no headache, no visual changes no speech or swallowing issues no chest pain, pressure or palpitations no shortness of breath, cough or wheezes Lower abdominal pain bloody bowel movements crampy no dysuria, hematuria or frequency no focal joint pain or swelling no back pain, CVA tenderness or radicular pain no bruising, bleeding or rashes no focal signs of weakness or numbness or altered sensation no complaints of anxiety or depression.. Physical Exam Physical Exam: The patient appeared underweight and thin Vital signs as documented. Head exam is normocephalic atraumatic Neck is without JVD, thyromegaly, or carotid bruits. Lungs are clear to auscultation, no focal loss of breath sounds Cardiac exam, Rhythm is regular.. No murmurs, rubs or gallops. Abdominal exam reveals normal bowel sounds, soft non tender, no masses Extremities are nonedematous and both pedal pulses are present Neurologic exam is alert and oriented, no focal loss of strength or sensation Skin is without bruises or rashes Psychologically is without concerns for anxiety or depression Results & Data Results & Data ([facility]) Vital Signs (Past 12 Hours) Vital Signs Temp Pulse Resp BP Pulse Ox 01/14/21 08:05 98.2 F 69 12 100/58 L 98 01/13/21 23:04 98.4 F 67 18 101/63 99 PG Care Time/CCT Total # of Minutes Spent Total Time Spent with Patient: Total time spent is greater than 50% in coordination of care (as documented) at patient's floor/unit and/or counseling patient: Coding Level of Care Code 52377 Subseq Hosp Care Lvl 2 Diagnoses Ulcerative colitis K51.819 Digestive disease complication type: unspecified complication Ulcerative colitis location: other ulcerative colitis Abdominal pain R10.9 Abdominal location: unspecified location Microcytic anemia D50.9 Weight loss R63.4 (1) Abdominal pain Abdominal location: unspecified location Qualified Code(s): R10.9 - Unspecified abdominal pain (2) Ulcerative colitis Digestive disease complication type: unspecified complication Ulcerative colitis location: other ulcerative colitis Qualified Code(s): K51.819 - Other ulcerative colitis with unspecified complications
[2021-01-14] MEDS: COLESTIPOL HCL 1 GM TAB PO SCH ×2 (10:44→21:15)
[2021-01-14] MEDS: MESALAMINE 4 GM/60 ML ENEMA PR SCH ×2 (14:29→21:15)
[2021-01-14] MEDS ORDERED: IRON SUCROSE 200 MG in 0.9 % SODIUM CHLORIDE 100 ML IV ONE (19:45)
[2021-01-15] MEDS: DICYCLOMINE HCL 10 MG CAP PO SCH ×2 (08:32→20:15)
[2021-01-15] MEDS: MULTIVITAMIN TAB PO SCH (08:32)
[2021-01-15] MEDS: MESALAMINE 4 GM/60 ML ENEMA PR SCH ×2 (08:32→20:15)
[2021-01-15] MEDS: methylPREDNISolone 40 MG in SYRINGE 0 ML IV SCH (08:43)
[2021-01-15 08:46] LABS: Hematocrit (blood only) 35.1 % (42-52); Hemoglobin 10.1 g/dL (14.0-18.0); Immature Granulocytes # (auto) 0.08 K/uL (0.00-0.02); Lymphocytes # (auto) 1.82 K/uL (1.2-3.4); Lymphocytes % (auto) 22.2 %; Mean Corpuscular Hemoglobin 21.6 pg (25-34); Mean Corpuscular Hgb Conc 28.8 g/dL (32-36); Mean Corpuscular Volume 75.2 fL (80-100); Mean Platelet Volume 7.8 fL (7.4-10.4); Monocytes # (auto) 1.24 K/uL (0.11-0.59); Monocytes % (auto) 15.1 %; Neutrophils # (auto) 5.07 K/uL (1.4-6.5); Neutrophils % (auto) 61.7 %; Platelet Count 621 K/uL (130-400); RDW Coefficient of Variation 17.7 % (11.5-14.5); RDW Standard Deviation 48.4 fL (36.4-46.3); Red Blood Count 4.67 M/uL (4.7-6.1); White Blood Count 8.21 K/uL (4.8-10.8)
[2021-01-15 09:08] LABS: Blood Urea Nitrogen 9 mg/dl (7-18); Calcium 9.7 mg/dl (8.5-10.1); Carbon Dioxide 30 mmol/L (21-32); Chloride 105 mmol/L (98-107); Creatinine Clr Calc Pharmacy 155.5 ml/min; Est GFR (African American) > 150.0 ml/min; Glucose 105 mg/dl (70-99); Magnesium 2.2 mg/dl (1.8-2.4); Potassium 4.1 mmol/L (3.5-5.1); Sodium 139 mmol/L (136-145)
[2021-01-15] MEDS: COLESTIPOL HCL 1 GM TAB PO SCH ×2 (09:58→21:10)
--- NOTE | 2021-01-15 12:27 | Gastroenterology Progress Note ---
Date of Service January 15, 2021 Assessment & Plan Admission and Anticipated Discharge Date Admission Date: January 13, 2021 Subjective Patient was seen and examined today, he feels better, no abdominal pain, stool is soft, not watery, no blood in yesterdays BM. On exam, abdomen is soft. Labs: reviewed Recommend: Continue current care as detailed previously yesterday. Plan to switch to PO Prednisone and follow up as OP . Recall GI if needed. Results & Data ([facility]) Vital Signs (Past 12 Hours) Vital Signs Temp Pulse Resp BP Pulse Ox 01/15/21 07:10 36.6 C 66 16 106/66 99 01/15/21 03:07 37 C 64 16 119/70 97
[2021-01-15] MEDS ORDERED: predniSONE 20 MG TAB PO STA (16:49)
--- NOTE | 2021-01-15 16:49 | Hospitalist Progress Note ---
Date of Service January 15, 2021 Assessment & Plan (1) Ulcerative colitis: Patient with presumed UC flair- with diagnosis in 2019 on colonoscopy - he has noticed no change in his symptoms with with Entyvio, dicyclomine, colestipol( previously also on HUmara) - was started on Methylprednisolone 40 BID IV, will transition to po prednisone 01/15/21 - GI consult placed no plans and intervention continuing steroid treatment however is recommending mesalamine enemas twice daily for 2 weeks then once daily for 2 weeks then twice weekly for a month also recommending iron infusion Patients rectal bleeding is improving CT abd/pelvis 01/13/21 IMPRESSION: Findings consistent with proctocolitis with long segment involvement. Increase in degree and extent of colonic wall thickening since CT of October 31, 2020. The findings suggest active inflammatory bowel disease given the clinical history. No free air or abscess. (2) Abdominal pain: As above, pain with defecation for the most part (3) Microcytic anemia: Is on iron sulfate- was placed on this after his October admisson venofer administered - His MCV is up to 73.5 from 69 in the past (4) Weight loss: Symptom control Patient is underweight Admission and Anticipated Discharge Date Admission Date: January 13, 2021 Subjective pt is doing ok, still with some abdominal pain, tolerating mesalamine enemas, GI med feels we can try to swtich to po prednisione and consider d/c home if ok tomorrow by the way of symptom control, Pt still with occasional bouts of pain 01/15/21. Review of Systems Review of Systems: Mild distress and fatigue no headache, no visual changes no speech or swallowing issues no chest pain, pressure or palpitations no shortness of breath, cough or wheezes continued Lower abdominal pain bloody bowel movements crampy no dysuria, hematuria or frequency no focal joint pain or swelling no back pain, CVA tenderness or radicular pain no bruising, bleeding or rashes no focal signs of weakness or numbness or altered sensation no complaints of anxiety or depression.. Physical Exam Physical Exam: The patient appeared underweight and thin Vital signs as documented. Head exam is normocephalic atraumatic Neck is without JVD, thyromegaly, or carotid bruits. Lungs are clear to auscultation, no focal loss of breath sounds Cardiac exam, Rhythm is regular.. No murmurs, rubs or gallops. Abdominal exam reveals normal bowel sounds, soft some lower quadrant pain on exam Extremities are nonedematous and both pedal pulses are present Neurologic exam is alert and oriented, no focal loss of strength or sensation Skin is without bruises or rashes Psychologically is without concerns for anxiety or depression Results & Data Results & Data ([facility]) Vital Signs (Past 12 Hours) Vital Signs Temp Pulse Resp BP Pulse Ox 01/15/21 14:49 97.9 F 119 H 12 115/72 95 01/15/21 07:10 97.9 F 66 16 106/66 99 PG Care Time/CCT Total # of Minutes Spent Total Time Spent with Patient: Total time spent is greater than 50% in coordination of care (as documented) at patient's floor/unit and/or counseling patient: Coding Level of Care Code 19438 Subseq Hosp Care Lvl 2 Diagnoses Ulcerative colitis K51.819 Ulcerative colitis location: other ulcerative colitis Digestive disease complication type: unspecified complication Abdominal pain R10.9 Abdominal location: unspecified location Microcytic anemia D50.9 Weight loss R63.4 (1) Ulcerative colitis Ulcerative colitis location: other ulcerative colitis Digestive disease complication type: unspecified complication Qualified Code(s): K51.819 - Other ulcerative colitis with unspecified complications (2) Abdominal pain Abdominal location: unspecified location Qualified Code(s): R10.9 - Unspecified abdominal pain
[2021-01-16] MEDS: MESALAMINE 4 GM/60 ML ENEMA PR SCH (08:44)
[2021-01-16] MEDS: MULTIVITAMIN TAB PO SCH (08:44)
[2021-01-16] MEDS: DICYCLOMINE HCL 10 MG CAP PO SCH (08:44)
[2021-01-16] MEDS ORDERED: predniSONE 20 MG TAB PO SCH (09:00)
[2021-01-16 09:21] LABS: BUN Creatinine Ratio 11.5 (10-20); Blood Urea Nitrogen 9 mg/dl (7-18); Calcium 9.6 mg/dl (8.5-10.1); Carbon Dioxide 29 mmol/L (21-32); Chloride 105 mmol/L (98-107); Creatinine Clr Calc Pharmacy 145.8 ml/min; Est GFR (African American) > 150.0 ml/min; Est GFR (Non-African American) 129.5 ml/min; Glucose 82 mg/dl (70-99); Magnesium 2.1 mg/dl (1.8-2.4); Sodium 139 mmol/L (136-145)
[2021-01-16 09:25] LABS: Basophils # (auto) 0.01 K/uL (0-0.2); Basophils % (auto) 0.1 %; Eosinophils # (auto) 0.01 K/uL (0-0.5); Eosinophils % (auto) 0.1 %; Hematocrit (blood only) 36.5 % (42-52); Hemoglobin 10.4 g/dL (14.0-18.0); Immature Granulocytes # (auto) 0.06 K/uL (0.00-0.02); Immature Granulocytes % (auto) 0.7 %; Lymphocytes # (auto) 2.52 K/uL (1.2-3.4); Lymphocytes % (auto) 30.5 %; Mean Corpuscular Hemoglobin 21.6 pg (25-34); Mean Corpuscular Hgb Conc 28.5 g/dL (32-36); Mean Corpuscular Volume 75.9 fL (80-100); Monocytes # (auto) 1.23 K/uL (0.11-0.59); Monocytes % (auto) 14.9 %; Neutrophils # (auto) 4.42 K/uL (1.4-6.5); Neutrophils % (auto) 53.7 %; Platelet Count 629 K/uL (130-400); RDW Coefficient of Variation 17.8 % (11.5-14.5); RDW Standard Deviation 49.7 fL (36.4-46.3); Red Blood Count 4.81 M/uL (4.7-6.1); White Blood Count 8.25 K/uL (4.8-10.8)
[2021-01-16] MEDS ORDERED: IRON SUCROSE 200 MG in 0.9 % SODIUM CHLORIDE 100 ML IV ONE (09:30)
[2021-01-16] MEDS: COLESTIPOL HCL 1 GM TAB PO SCH (10:13)
--- NOTE | 2021-01-16 15:24 | Discharge Summary ---
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 Patient has persistent symptoms of ongoing bloody diarrhea for the past 2-3 weeks despite outpatient prednisone treatment. Multiple non-response to treatment for ulcerative colitis for last 1.5 years. Was recently admitted in September for continued symptoms and was treated with IV methylprednisolone 60mg QID. He has been on a Prednisone taper, he reports 25 pound weight loss as well as unable to continue at College classes because of severe diarrhea. His episodes have also been waking him up in the middle of the night as well. He endorses increase in blood with diarrhea and more frequency. He has chills with his diarrhea, and abdominal discomfort is majority in the bilateral lower quadrants. He will be admitted to receive IV steroids, NPO after midnight, GI consult placed. Admission Exam Per Admitting Provider PHYSICAL EXAM: General: awake, alert, no apparent distress Head: Normocephalic, atraumatic ENT: PERRL, EOMI, no pharyngeal exudate, mucous membranes moist, no oral ulcerations Neuro: AAO x 3, speech clear and appropriate, strength intact bilaterally 5/5, sensation intact and equal all extremities and dermatomes, no pronator drift Chest: equal rise and fall of the chest, no accessory muscle use, no heaves or thrills, Clear to auscultation, on room air, Cardiac: Regular rate and rhythm, telemetry reviewed, skin warm dry, cap refill <3 seconds, peripheral pulses +2 no JVD, no murmur, no edema GI: NABS x 4 quadrants, soft, nontender to palpation, no rebound, guarding or tenderness : Spontaneously voiding, no pain, no CVA tenderness, Extremities: Normal inspection, no peripheral edema or erythema, calfs nontender to palpation Psych: Normal mood and affect Skin: no rash or erythema Principal Diagnosis Ulcerative colitis Discharge Exam Constitutional WD/WN, vitals as above Respiratory normal respiratory effort, lungs clear to auscultation Cardiovascular RRR, no murmur, no edema Gastrointestinal (Abdomen) Inspection/Auscultation: normal bowel sounds Percussion/Palpation: + abdomen tender (mild lower) and abdomen soft; no guarding and abdomen not rigid Discharge Data Allergies Allergy/AdvReac Type Severity Reaction Status Date / Time No Known Allergies Allergy Verified 01/12/21 19:08 Consultations 01/13/21 15:16 ED Decision to Admit Stat 01/13/21 19:29 Consult Gastroenterology Routine Ordered Studies 01/13/21 13:06 CT abd pelvis IV con only Stat IMPRESSION: Findings consistent with proctocolitis with long segment involvement. Increase in degree and extent of colonic wall thickening since CT of October 31, 2020. The findings suggest active inflammatory bowel disease given the clinical history. No free air or abscess. Hospital Course (1) Ulcerative colitis: Paul Clifton is a 20 year old male admitted to [facility] from January 13-2020 due to ongoing bloody diarrhea. He was diagnosed with ulcerative colitis flare and treated with intravenous steroids and mesalamine enemas. Please continue on: Prednisone 40mg daily for 1 week, then 20mg daily until follow up with your appliance sales associate Mesalamine enemas twice a day for 2 weeks on discharge,then 1 time daily for 2 weeks then 3 times weekly thereafter He was also noted to be iron deficient with hemoglobin 10.4 and MCV 75.9. This was treated with Venofer IV 200mg x2. He should continue on oral iron supplementation on discharge and follow up with his primary care provider in approximately 2 weeks for ongoing management of this. (2) Abdominal pain: (3) Microcytic anemia: (4) Weight loss: Total Time Total Time Spent Total Time Spent (In Minutes): 35 Discharge Plan Discharge Items Patient Disposition: Home - Self-Care Reason For Visit: WORSENING UC SYMPTOMS Discharge Diagnosis: Ulcerative colitis Activity: Resume your previous activity Non-emergency contact: Primary Care Provider and Licensed Veterinary Technician Call non-emergency contact if: you have any medication questions and your symptoms worsen Follow-up/Referrals: Sushil Davis III, CRNP [Primary Care Provider] - 01/31/21 4:00 pm (If you have any questions or need to change this appointment, please call [phone].) Sakshi Vo CRNP [Nurse Practitioner] - Diet: Regular Addtl Attending Provider Instructions: You were admitted to [facility] from January 13-2020 due to ongoing bloody diarrhea. You were diagnosed with ulcerative colitis and treated with intravenous steroids and mesalamine enemas. Please continue on: Prednisone 40mg daily for 1 week, then 20mg daily until follow up with your appliance sales associate Mesalamine enemas twice a day for 2 weeks on discharge,then 1 time daily for 2 weeks then 3 times weekly thereafter You were also noted to be iron deficient. This was treated with Venofer 200mg x2. Please continue on oral iron supplementation on discharge and follow up with your primary care provider in approximately 2 weeks for ongoing management of this. Kind regards, Dr Dominic Morrow Pending Studies at Discharge: No Stand-Alone Forms: My [facility], Smoking Cessation Medications and DC Order Prescriptions: New prednisone 20 mg tablet See Rx Instructions .ROUTE .COMPLEX Qty: 35 RF: 0 Continued dicyclomine 10 mg Capsule 20 mg PO BID Qty: 20 RF: 0 multivitamin Tablet 1 tab PO DAILY RF: 0 colestipol 1 gram Tablet 1 g PO BID RF: 0 ferrous sulfate 325 mg (65 mg iron) Capsule, Extended Release 1 mg PO DAILY RF: 0 Entyvio 300 mg Recon Soln 300 mg IV MONTHLY RF: 0 Discontinued prednisone 10 mg Tablets,Dose Pack 20 mg PO DAILY RF: 0 IBgard 90 mg Capsule,Delayed,Extend.Release 90 mg PO BID RF: 0 Discharge Orders: Discharge Order (Routine); Ordered 01/16/21 Ordered By: Dominic Morrow Admission Data Admit Date/Time: 01/13/21 18:04 Attending Provider: Dominic Morrow Admit Provider: Abner Hernandez Primary Care Provider: Sushil Davis III Other Providers: Dominic Dinero Donald S. Other Interventions: Discharge Summary Assessment (RN) Last Done: 01/16/21 15:42 Coding Level of Care Code D/C Day Management >30 mins Diagnoses Ulcerative colitis K51.819 Digestive disease complication type: unspecified complication Ulcerative colitis location: other ulcerative colitis Abdominal pain R10.9 Abdominal location: unspecified location Microcytic anemia D50.9 Weight loss R63.4
== END 2021-01-16 16:13 | disposition home or self-care (01) | DRG 385 ==
LOC: ED 12:08 → SUATTDRO 18:04 → 2W 18:04